=== PATIENT | female | born 1995 | race American Indian/Alaskan Native ===

== ENCOUNTER 2018-08-13 15:29 | Emergency (ER) | payer MEDICAID ==
[2018-08-13] MEDS ORDERED: ZOFRAN ODT PO/SL ONE (16:58)
[2018-08-13] MEDS ORDERED: DILAUDID IM ONE (16:58)
--- NOTE | 2018-08-13 17:22 | Emergency Department Report ---
ED Female HPI - General Chief complaint: Abdominal Pain Stated complaint: VAGINAL PAIN Time Seen by Provider: 08/13/18 16:48 Source: patient Mode of arrival: Ambulatory Limitations: No Limitations - History of Present Illness Initial comments: Ms. Fleming is a 23 yo female with SLE, CHF who presents with severe pelvic pain since last night. Pain is in vagina and radiates to pelvic. NO discharge. No fever. No previous hx of PID> MD Complaint: pelvic pain, other ("pain in my vagina") -: Gradual, Last night Severity: severe Quality: sharp Consistency: constant Improves with: none Worsens with: none Are you Now?: No Associated Symptoms: denies other symptoms - Related Data Previous Rx's Medication Instructions Recorded Last Taken Type Ibuprofen [Motrin 400 MG tab] 400 mg PO Q8H PRN #10 tablet 08/14/18 Unknown Rx Allergies Allergy/AdvReac Type Severity Reaction Status Date / Time lisinopril Allergy Unknown Verified 08/13/18 16:16 ED Review of Systems ROS: Stated complaint: VAGINAL PAIN Other details as noted in HPI Comment: All other systems reviewed and negative Constitutional: denies: fever, malaise Cardiovascular: denies: chest pain ED Past Medical Hx - Past Medical History Previous Medical History?: Yes Additional medical history: SLE, CHF - Surgical History Additional Surgical History: UTO - Social History Smoking Status: Current Every Day Smoker Substance Use Type: Other (UTO) - Medications Home Medications: Home Medications Medication Instructions Recorded Confirmed Last Taken Type Ibuprofen [Motrin 400 MG tab] 400 mg PO Q8H PRN #10 tablet 08/14/18 Unknown Rx ED Physical Exam - General Limitations: No Limitations General appearance: alert, in no apparent distress, other (appears in severe pain, rocking back in forth in bed with vigor) - Head Head exam: Present: atraumatic, normocephalic - Eye Eye exam: Present: normal appearance - ENT ENT exam: Present: mucous membranes moist - Neck Neck exam: Present: normal inspection, full ROM - Respiratory Respiratory exam: Present: normal lung sounds bilaterally. Absent: respiratory distress, wheezes, rales, rhonchi - Cardiovascular Cardiovascular Exam: Present: regular rate, normal rhythm, normal heart sounds. Absent: systolic murmur, diastolic murmur, rubs, gallop - GI/Abdominal GI/Abdominal exam: Present: soft, normal bowel sounds. Absent: distended, tenderness, guarding, rebound - External exam: Present: normal external exam. Absent: erythema, swelling, lesions, lacerations, ecchymosis, bleeding Speculum exam: Present: normal speculum exam. Absent: erythema, vaginal discharge, cervical discharge, vaginal bleeding, foreign body, tissue, laceration Bi-manual exam: Present: normal bi-manual exam. Absent: cervical motion tendernes - Extremities Exam Extremities exam: Present: normal inspection - Back Exam Back exam: Present: normal inspection - Neurological Exam Neurological exam: Present: alert, oriented X3 - Psychiatric Psychiatric exam: Present: other (very upset in discomfort) - Skin Skin exam: Present: warm, dry, intact, normal color. Absent: rash ED Course Vital Signs 08/13/18 08/13/18 08/13/18 16:14 16:16 16:30 Temperature 98.8 F Pulse Rate Respiratory Rate Blood Pressure 195/135 195/135 Blood Pressure [Right] O2 Sat by Pulse 100 100 Oximetry 08/13/18 22:30 Temperature Pulse Rate 100 H Respiratory 18 Rate Blood Pressure Blood Pressure 104/18 [Right] O2 Sat by Pulse 100 Oximetry ED Medical Decision Making - Radiology Data Radiology results: report reviewed, image reviewed - Medical Decision Making Ms. Fleming presents with severe pelvic pain. I have reviewed Prescription Drug Monitorin Program database of [place]. Ms. Fleming has received 11 scripts for controlled substanced Percocet and clonazepam from mostly Ed providers. Unfortunately Ms. Fleming presented with drug-seeking behavior. She initially refused labs and intervention. She will not provide urine sample. She continued to persistently asked for pain medication. She also asked for referral to another hospital which she did not receive pain medication. I do not detect acute emergent condition which requires further evaluation. I do not suspect appendicitis or ectopic . I do not suspect ovarian torsion. She states that she is not sexually active. She has not had intercourse in over 4 months. She will not cooperate with further care. She is discharged home in stable condition. Critical care attestation.: If time is entered above; I have spent that time in minutes in the direct care of this critically ill patient, excluding procedure time. ED Disposition Clinical Impression: Pelvic pain, Lupus Disposition: - TO HOME OR SELFCARE Is pt being admited?: No Does the pt Need Aspirin: No Condition: Stable Instructions: Chronic Pelvic Pain in Women (ED), Abdominal Pain (ED) Prescriptions: Ibuprofen [Motrin 400 MG tab] 400 mg PO Q8H PRN #10 tablet PRN Reason: Pain , Severe (7-10) Referrals: JACI BOTELLO MD [Primary Care Provider] - 3-5 Days
[2018-08-13] MEDS ORDERED: TORADOL IM ONE (20:30)
[2018-08-13] MEDS ORDERED: PERCOCET 5/325 PO ONE (20:31)
[2018-08-14 01:45] VITALS: BP 104/88
--- NOTE | 2018-08-14 02:13 | Ultrasound Report ---
ULTRASOUND PELVIS, COMPLETE INDICATION: Severe pelvic pain COMPARISON: No relevant prior imaging study available. FINDINGS: Transabdominal imaging was performed. Uterus: No significant abnormality. Endometrial echo complex measures 8 mm. Right ovary: Right ovary is not clearly seen.. Left ovary: Left ovary is not well visualized. Additional findings: No free fluid is seen in the pelvis. There is mild bladder wall thickening. IMPRESSION: 1. No uterine abnormalities are seen. 2. The ovaries are not well visualized on transabdominal imaging, due to overlying bowel and incomple te bladder distention. The patient refused transvaginal imaging. 3. Mild bladder wall thickening is noted. This could be due at least in part due to relative decompre ssion of the bladder. Cystitis could have this appearance. Signer Name: Aris Garner MD Signed: 08/14/2018 2:09 AM Workstation Name: [id number]
== END 2018-08-14 01:47 | disposition home or self-care (01) ==
LOC: ED 15:29
DX: R10.2 Pelvic and perineal pain (principal); M32.9 Systemic lupus erythematosus, unspecified; F17.200 Nicotine dependence, unspecified, uncomplicated; Z88.5 Allergy status to narcotic agent; Z79.1 Long term (current) use of non-steroidal anti-inflammatories (NSAID)
CPT/HCPCS: 76856; 87591; 96372; 99284; J1170; J1885; Q0162